=== PATIENT | male | born 2000 | race Hispanic/Latino ===

== ENCOUNTER 2021-01-15 17:01 | Emergency (ER) | payer SELFPAY ==
--- OUTSIDE RECORDS SUMMARY | 2021-01-15 17:04 | XMS REPORT | Continuity of Care Document ---
:2000 Author Organization [facility] t Address [address] [place] [address] Care Team Providers Name Role Phone Unavailable Unavailable Unavailable Payers Payer Name Policy Type Policy Number Effective Date Expiration Date S ource Problems This patient has no known problems. Allergies, Adverse Reactions, Alerts Allergy Allergy Status Severity Reaction(s) Onset Inactive Treating Comm ents Source Name Type Date Date Clinician No Known DA Active U 2019-06 [facility] Allergie 07-11 [place] s 00:00: [address] Medications This patient has no known medications. Procedures This patient has no known procedures. Results Test Description Test Time Test Comments Results Result Comments Source COVID 19 INHOUSE AG 2020-05-12 00:39:00 Test Item Value Reference Range Interpretation Comme nts COVID 19 INHOUSE AG Presumptive Negative Presump.Neg Results are for the (test code = identification of [id number]) [id number] ocapsid protein antigen. Antige n is generallydetect able in upper respiratory spe cimens during the acutephase of infection. Positive result s indicate the presenceof jeffry l antigens, but clinical correl ation with patienthistory and other diagnostic info rmation is necessary todet ermine infection statu s. Positive results do not rule outbacterial in fection or co-infection wi th other viruses. Theage nt detected may not be the defi nite cause of disease.Laborat ories within the [facility] and its territoriesare required to report all posi tive results to [facility] public health authorities. Ne gative results should be treat ed as presumptive and confirmed with molecular assay , if necessary for patientmana gemgerald. Negative result s do not rule out COVID-19 an dshould not be used as the geraldo e basis for treatment orpat ient management decisions, incl uding infection controldecision s. Negative results should be considered in thecontext o f a patient's recent exposure s, history andpresence of clinical signs and symptoms co nsistent withCOVID-19. T rusty Lindsay SARS Antigen SUKHWINDER is intended for use by trained linical personnel and i ndividuals trained in in t of [facility]. T rusty Lindsay SARS Antigen SUKHWINDER is only for use underthe Food a nd Drug Administration' s Emergency UseAuthorizatio n. LOT # [id number].DATE 01/14/21PROCEDURAL CONTROL ACCEPTABLE Y/N Y
--- NOTE | 2021-01-15 17:32 | EDPHYS ---
Physician Documentation [facility] Name: Jose E Henderson Age: 20 yrs Sex: Male : 2000 Arrival Date: 01/15/2021 Time: 17:06 Bed DIS7 Private MD: ED Physician Siddhartha Manjarrez HPI: 01/15 17:33 This 20 yrs old Male presents to ER via Ambulatory with complaints of Penile jr8 Pain. 17:33 The patient presents with a known STD exposure, with a history of engaging in sex with jr8 a single partner, did not use protection, symptoms include dysuria, yellow penile discharge. Modifying factors: The symptoms are alleviated by nothing, the symptoms are aggravated by urinating. Associated signs and symptoms: The patient has no apparent associated signs or symptoms. Severity of symptoms: At their worst the symptoms were mild, in the emergency department the symptoms are unchanged. The patient has experienced a previous episode. The patient has not recently seen a physician. Historical: - Allergies: 17:28 No Known Allergies; tw2 - Home Meds: 17:28 None [Active]; tw2 - PMHx: 17:28 None; tw2 - Immunization history:: Adult Immunizations. - Social history:: Smoking status: . ROS: 17:33 Eyes: Negative for injury, pain, redness, and discharge, ENT: Negative for injury, jr8 pain, and discharge, Neck: Negative for injury, pain, and swelling, Cardiovascular: Negative for chest pain, palpitations, and edema, Respiratory: Negative for shortness of breath, cough, wheezing, and pleuritic chest pain, Abdomen/GI: Negative for abdominal pain, nausea, vomiting, diarrhea, and constipation, Back: Negative for injury and pain, MS/Extremity: Negative for injury and deformity, Skin: Negative for injury, rash, and discoloration, Neuro: Negative for headache, weakness, numbness, tingling, and seizure. 17:33 : Positive for burning with urination, penile discharge, penile pain, Negative for testicular pain Exam: 17:33 Constitutional: This is a well developed, well nourished patient who is awake, alert, jr8 and in no acute distress. Cardiovascular: Regular rate and rhythm with a normal S1 and S2. No gallops, murmurs, or rubs. Normal PMI, no JVD. No pulse deficits. Respiratory: Lungs have equal breath sounds bilaterally, clear to auscultation and percussion. No rales, rhonchi or wheezes noted. No increased work of breathing, no retractions or nasal flaring. Abdomen/GI: Soft, non-tender, with normal bowel sounds. No distension or tympany. No guarding or rebound. No evidence of tenderness throughout. Back: No spinal tenderness. No costovertebral tenderness. Full range of motion. Skin: Warm, dry with normal turgor. Normal color with no rashes, no lesions, and no evidence of cellulitis. MS/ Extremity: Pulses equal, no cyanosis. Neurovascular intact. Full, normal range of motion. Neuro: Awake and alert, GCS 15, oriented to person, place, time, and situation. Cranial nerves II-XII grossly intact. Motor strength 5/5 in all extremities. Sensory grossly intact. Cerebellar exam normal. Normal gait. Vital Signs: 17:26 BP 130 / 80; Pulse 59; Resp 18; Temp 98.3; Pulse Ox 100% on R/A; tw2 MDM: 17:30 Data reviewed: vital signs, nurses notes, and as a result, I will discharge patient. jr8 Data interpreted: Pulse oximetry: on room air is 100 %. Interpretation: normal. Counseling: I had a detailed discussion with the patient and/or guardian regarding: the historical points, exam findings, and any diagnostic results supporting the discharge/admit diagnosis, the need for outpatient follow up, a family practitioner, to return to the emergency department if symptoms worsen or persist or if there are any questions or concerns that arise at home. ED course: Patient that he needs to remain abstinent for the next 14 days and that he needs to tell his partner to be treated as well. If worse or sudden changes to come back. 17:32 Patient medically screened. jr8 Administered Medications: 17:48 Drug: Zithromax (azithromycin) 1 grams Route: PO; tr6 17:49 Drug: Rocephin (cefTRIAXone) 500 mg Route: IM; Site: left deltoid; tr6 Disposition Summary: 01/15/21 17:32 Discharge Ordered Location: Home jr8 Problem: new jr8 Symptoms: have improved jr8 Condition: Stable jr8 Diagnosis - Unspecified sexually transmitted disease jr8 - Other urethritis jr8 Followup: jr8 - With: Private Physician - When: 1 week - Reason: Recheck today's complaints, Continuance of care, Re-evaluation by your physician Discharge Instructions: - Discharge Summary Sheet jr8 - Chlamydia, Male jr8 - Gonorrhea jr8 - Urethritis, Adult jr8 Forms: - Medication Reconciliation Form jr8 - Thank You Letter jr8 - Antibiotic Education jr8 - Prescription Opioid Use jr8 Prescriptions: - Doxycycline Monohydrate 100 mg Oral Tablet - take 1 tablet by ORAL route every 12 hours for 10 days; 20 tablet; Refills: 0, jr8 Product Selection Permitted Addendum: 01/18/2021 06:48 Co-signature as Attending Physician, Siddhartha Manjarrez MD I agree with the assessment and c montaño plan of care. Signatures: Siddhartha Manjarrez MD MD cha Roszak, Josh, PA PA jr8 Cori Sinha RN RN tw2 Yecenia Rae RN RN tr6 Corrections: (The following items were deleted from the chart) 01/15 17:28 17:28 PMHx: None; 2 tw2
--- NOTE | 2021-01-15 17:32 | ER ---
Nurse's Notes [facility] Name: Jose E Henderson Age: 20 yrs Sex: Male : 2000 Arrival Date: 01/15/2021 Time: 17:06 Bed DIS7 Private MD: Diagnosis: Unspecified sexually transmitted disease;Other urethritis Presentation: 01/15 17:26 Chief complaint: Patient states: when i go to the restroom it medrano like crazy when i tw2 pee. no abdominal pain. for 3 days. discharge yellowish whitish, ghonnrhea 1 month ago. i got 3 shots in [place]. Coronavirus screen: At this time, the client does not indicate any symptoms associated with coronavirus-19. Ebola Screen: Patient denies travel to an Ebola-affected area in the 21 days before illness onset. Initial Sepsis Screen: Does the patient meet any 2 criteria? No. Patient's initial sepsis screen is negative. Does the patient have a suspected source of infection? No. Patient's initial sepsis screen is negative. Risk Assessment: Do you want to hurt yourself or someone else? Patient reports no desire to harm self or others. Onset of symptoms was January 15, 2021. 17:26 Method Of Arrival: Ambulatory tw2 17:26 Acuity: ASHLY 4 tw2 17:29 Note provider JANNET Moss in triage room discussing with pt. tw2 Triage Assessment: 17:28 General: Appears in no apparent distress. slender, Behavior is calm, cooperative, tw2 appropriate for age. Pain: Complains of pain in burning with urination. : Reports burning with urination. Historical: - Allergies: 17:28 No Known Allergies; tw2 - Home Meds: 17:28 None [Active]; tw2 - PMHx: 17:28 None; tw2 - Immunization history:: Adult Immunizations. - Social history:: Smoking status: . Assessment: 17:51 Reassessment: evaluated and assessed by oil well logger. medicated and discharged by this RN. tr6 Vital Signs: 17:26 BP 130 / 80; Pulse 59; Resp 18; Temp 98.3; Pulse Ox 100% on R/A; tw2 ED Course: 17:06 Patient arrived in ED. mr 17:28 Triage completed. tw2 17:28 Arm band placed on. tw2 17:30 Brayan Agudelo PA is PHCP. jr8 17:30 Siddhartha Manjarrez MD is Attending Physician. jr8 17:46 Yecenia Rae, JASS is Primary Nurse. tr6 Administered Medications: 17:48 Drug: Zithromax (azithromycin) 1 grams Route: PO; tr6 17:49 Drug: Rocephin (cefTRIAXone) 500 mg Route: IM; Site: left deltoid; tr6 Outcome: 17:32 Discharge ordered by . jr8 17:52 Discharged to home ambulatory, pt refused wheelchair tr6 17:52 Condition: stable 17:52 Discharge instructions given to patient, Instructed on discharge instructions, follow up and referral plans. medication usage, Demonstrated understanding of instructions, follow-up care, medications, Prescriptions given X 3. 17:52 Patient left the ED. tr6 Signatures: Yesy Arredondo mr Brayan Agudelo PA PA jr8 Cori Sinha RN RN tw2 Yecenia Rae, JASS RN tr6 Corrections: (The following items were deleted from the chart) 17:28 17:28 PMHx: None; tw2 tw2
[2021-01-15] MEDS ORDERED: AZITHROMYCIN 250 MG TAB ONE (18:03)
[2021-01-15] MEDS ORDERED: CEFTRIAXONE 500 MG/VIAL ONE (18:03)
[2021-01-15] MEDS ORDERED: WATER FOR INJ,STERILE 10 ML ONE (18:04)
[2021-01-15 18:14] VITALS: BP 130/80; TEMP 98.3; O2SAT 100
== END 2021-01-15 17:52 | disposition home or self-care (01) ==
LOC: ER 17:01
DX: A64 Unspecified sexually transmitted disease (principal); N34.2 Other urethritis
CPT/HCPCS: 96372; 99283; J0696